=== PATIENT | male | born 1970 | race Asian ===

== ENCOUNTER 2023-03-04 08:39 | Emergency (ER) | payer OTHER ==
[~2023-03-04] VITALS: Ht 172.7 cm; Wt 83.9 kg
[2023-03-04 08:50] VITALS: BP 110/86; TEMP 97.8
--- NOTE | 2023-03-04 08:56 | NUR ---
PT WALKED INTO ER STATING "I TWISTED MY LEFT ANKLE 3 DAYS AGO AND SWELLING IS WORSE". PT IS BREATHING EVEN AND UNLABORED, AWAITING MD FOR EVAL.
--- NOTE | 2023-03-04 08:57 | NUR ---
AT BEDSIDE FOR EVAL
--- NOTE | 2023-03-04 10:50 | NUR ---
Patient discharged to home in stable condition. Written and verbal after care instructions given. Patient verbalizes understanding of instruction.
== END 2023-03-04 10:55 | disposition home or self-care (01) ==
LOC: ER 08:59
DX: M25.572 Pain in left ankle and joints of left foot (principal); I10 Essential (primary) hypertension; E78.00 Pure hypercholesterolemia, unspecified
CPT/HCPCS: 73610-TC